=== PATIENT | female | born 1985 | race Two or more races ===

== ENCOUNTER 2022-09-21 13:56 | Outpatient (REF) | payer OTHER, SELFPAY ==
[2022-09-21 14:22] LABS: MANUAL DIFF FLAG NO
[2022-09-21 15:44] LABS: Basophils Absolute Auto 0.2 X10*3/uL (0.0-0.2); Basophils Percent Auto 1.4 % (0-2); Eosinophils Absolute Auto 0.4 X10*3/uL (0.0-0.4); Eosinophils Percent Auto 3.8 % (0-4); Hematocrit 36.3 % (37.0-47.0); Hemoglobin 11.3 g/dl (12.0-16.0); Imm Gran Abs Auto 0.04 X10*3/uL (0.00-0.03); Imm Gran Pct Auto 0.4 % (0.0-0.4); Lymphocytes Absolute Auto 1.9 X10*3/uL (1.2-4.9); Lymphocytes Percent Auto 18.2 % (20-40); Mean Corpuscular HGB Conc 31.1 g/dl (31.0-35.0); Mean Corpuscular Volume 83.4 fL (80.0-98.0); Monocytes Absolute Auto 0.7 X10*3/uL (0.1-1.2); Monocytes Percent Auto 6.2 % (2-11); Neutrophils Absolute Auto 7.4 x10*3/uL (2.0-8.3); Platelet Count 408 X10*3/uL (160-400); Red Blood Count 4.35 X10*6/uL (4.20-5.50); Red Cell Distribution Width 14.8 % (11.0-16.0); White Blood Count 10.6 X10*3/uL (4.8-10.8)
[2022-09-21 16:42] LABS: Alanine Aminotransferase 15 U/L (0-31); Albumin Level 4.1 g/dL (3.5-5.0); Alkaline Phosphatase 65 U/L (39-117); Anion Gap 14 (12-20); Aspartate Amino Transferase 16 U/L (5-31); Bilirubin Total 0.3 mg/dL (0.0-1.0); Blood Urea Nitrogen 14 mg/dL (9-16); Calcium 9.6 mg/dL (8.4-10.2); Carbon Dioxide 26 mmol/L (22-29); Chloride 106 mmol/L (96-108); Estimated Glomerular Filt Rate > 60; Ethanol < 10 mg/dL; Ferritin 13 ng/mL (10-122); Free T4 (Free Thyroxine) 0.92 ng/dL (0.71-1.85); Gamma Glutamyl Transpeptidase 23 U/L (7-33); Glucose Random 86 mg/dL (60-115); HCG Quantitative < 2 mIU/mL; Potassium 4.5 mmol/L (3.3-5.1); Sodium 141 mmol/L (135-145); Thyroid Stimulating Hormone 0.93 uIU/mL (0.32-4.0); Total Protein 7.2 g/dL (6.5-8.0)
[2022-09-21 16:51] LABS: Folate 8.9 ng/mL (> or = 4.0); Vitamin B12 698 pg/mL (200-900)
== END 2022-09-21 13:57 | disposition home or self-care (01) ==
LOC: HO.LAB 13:56
PROVIDERS: Visit Provider Nurse Practitioner Psychiatric/Mental Health
DX: F10.20 Alcohol dependence, uncomplicated (principal)
CPT/HCPCS: 36415; 80053; 82077; 82607; 82728; 82746; 82977; 84439; 84443; 84702; 85025

== ENCOUNTER 2022-10-14 11:45 | Outpatient (RCR) | payer OTHER, SELFPAY ==
[2022-09-15 10:30] VITALS: BP 124/82; PULSE 80; TEMP 36.2
[2022-09-15 15:06] LABS: Amphetamine Screen Urine Not Detected (Not Detect); Barbiturates, Urine Not Detected (Not Detect); Benzodiazepines Screen Urine Not Detected (Not Detect); Cannabinoid Screen Urine Not Detected (Not Detect); Cocaine Screen Urine Not Detected (Not Detect); Fentanyl, urine Not Detected (Not Detect); Opiate Screen Urine Not Detected (Not Detect); Phencyclidine Screen Urine Not Detected (Not Detect)
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
--- NOTE | 2022-09-16 14:10 | HO.PHPIOP ---
Case opened in treatment team
--- NOTE | 2022-09-20 15:22 | HO.PHPPROGNO ---
Subjective Subjective Date of Service: 09/20/22 Reason For Visit: ADHD Medical Problems Affecting Mental Status: No Interim History: Reports taking Adderall, with positive affect. Reports since stopping alcohol 1 month ago has had increased appetite, poor sleep. Would like to be tested weekly for alcohol. Interested in either Campral or naltrexone. Medication Compliance: Yes Side effects from medications: No Attending Groups: Yes Review of Systems Acute medical concerns: No Medical Review of Systems: unchanged Review of Systems Review of Systems Yes all other systems are reviewed and are negative Constitutional: Reports no additional constitutional complaints Mental Status Exam Mental Status Exam Narrative: NAD Patient Appearance: Well Grooomed Patient Orientation: Person, Place, Time and Situation Level of Consciousness: Appropriate Patient Behavior: Appropriate, Talkative, Cooperative, Anxious and Good Eye Contact Mood Description: Appropriate Affect Description: Anxious Patient Cognition Impaired: No Ability to Follow Directions: Excellent Speech Pattern: Clear, Coherent and Excessive Memory Description: Intact Hallucinations: None Delusions: Not Present Thought Process: Intact and Goal Oriented Thought Content: positive for Circumstantial Depressive Symptoms: Increased Anxiety, Increased Irritability, Difficulty Sleeping, Changes in Appetite (increased), Loss of Int. in Activity and Loss of Energy Judgement: Fair Assessment & Plan Assessment & Plan (1) Alcohol dependence, uncomplicated: Status: Acute Code(s): F10.20 - Alcohol dependence, uncomplicated Assessment and Plan: Reports taking Adderall, with positive affect for ADHD. No SI/HI, no safety concerns. Reports since stopping alcohol 1 month ago has had increased appetite, poor sleep. Would like to be tested weekly for alcohol. It was explained that our screenings here are for medical purposes, and that we do not screen for alcohol. Interested in either Campral or naltrexone. We reviewed medications in detail. Patient had lab work that was ordered but has not yet completed. She has decided that she will complete labs 1st, and then decide which medication she would like to go forward with. (2) Generalized anxiety disorder: Status: Acute Code(s): F41.1 - Generalized anxiety disorder (3) Attention-deficit hyperactivity disorder, combined type: Status: Acute Code(s): F90.2 - Attention-deficit hyperactivity disorder, combined type Plan 1. Continue with current [facility] plan of care. 2. Patient to obtain lab work. 3. Follow-up as per protocol. Patient educated on: diagnosis, medication risk/benefits, substance abuse and therapeutic strategies Informed Consent: understands Reason for contiued partial hosp. stay Substantial Risk for: inability to function and rapid decompensation Certification I certify that partial hospital treatment is medically necessary due to the symptoms and problems resulting from the patient's mental illness and the failure to treat the patient at the partial hospital level of care would likely result in the patient requiring inpatient psychiatric care which could not be prevented at a less intensive level of care. I spent minutes with the patient and/or on the patient floor today, greater than?50% of which was spent counseling/coordinating care. Discharge Plan Discharge Attending provider: Josemanuel Valverde Medications: No Action dextroamphetamine-amphetamine 30 mg tablet 1 tab PO BID dextroamphetamine-amphetamine 20 mg tablet 20 mg PO DAILY
--- NOTE | 2022-09-24 11:42 | PC.NURSE ---
Assisted patient in making the following f/u appointments that patient has been putting off for years. [facility]. [address], [place]. Office # [phone]. Appointment with Gomez Vazquez Saturday, October 01, 2022 at 8:30 am. [facility]. [address] [place] [address]. Office Number [phone]. Appointment on Saturday, October 15, 2022 at 2:30 Pm.
--- NOTE | 2022-09-24 11:44 | PC.NURSE ---
Patient given a copy of her lab results.
--- NOTE | 2022-09-24 13:49 | PC.NURSE ---
Patient given information about emergency shelters in the area.
--- NOTE | 2022-09-24 13:57 | PC.NURSE ---
Patient let staff know that she has secured housing for the weekend by borrowing money from her brother. She has been offered a list of emergency shelters. Patient will continue to stay in a hotel through the weekend.
--- NOTE | 2022-09-28 13:28 | P.PNPSP_ITS ---
Subjective Subjective Date of Service: 09/28/22 Reason For Visit: ADHD Medical Problems Affecting Mental Status: No Interim History: Describes mood as ?good ?. Less anxious. Finding groups helpful. Continues to remain abstinent from alcohol. Has questions regarding naltrexone, which was started recently. Medication Compliance: Yes Side effects from medications: No Attending Groups: Yes Review of Systems Acute medical concerns: No Medical Review of Systems: unchanged Review of Systems Review of Systems Yes all other systems are reviewed and are negative Constitutional: Reports no additional constitutional complaints Mental Status Exam Mental Status Exam Narrative: NAD Patient Appearance: Well Grooomed Patient Orientation: Person, Place, Time and Situation Level of Consciousness: Appropriate Patient Behavior: Appropriate, Cooperative and Good Eye Contact Mood Description: Appropriate Affect Description: Appropriate Patient Cognition Impaired: No Ability to Follow Directions: Excellent Speech Pattern: Clear and Coherent Memory Description: Intact Hallucinations: None Delusions: Not Present Thought Process: Intact and Goal Oriented Thought Content: positive for Intact Judgement: Fair Assessment & Plan Assessment & Plan (1) Alcohol dependence, uncomplicated: Status: Acute Code(s): F10.20 - Alcohol dependence, uncomplicated Assessment and Plan: Describes mood as ?good ?. Less anxious. Finding groups helpful. Continues to remain abstinent from alcohol. Has questions regarding naltrexone, which was started recently. States that she has noticed since starting it several days ago that her reactions are ?monotone ?. We reviewed any possible medication interactions with her other medication, which through prescription medication interaction shellfish checker, shows no potential interactions. Reviewed naltrexone side effects both common and more serious. Patient not sure at this time whether her newfound sobriety or the actual medication is causing her to have this feeling monotone, less bright affect. Discussed in depth, patient will remain on the medication for the time being, and has been instructed to stop if begins to feel depressed while taking it. No SI, no safety concerns. (2) Generalized anxiety disorder: Status: Acute Code(s): F41.1 - Generalized anxiety disorder (3) Attention-deficit hyperactivity disorder, combined type: Status: Acute Code(s): F90.2 - Attention-deficit hyperactivity disorder, combined type Plan 1. Continue with current [facility] plan of care. 2. Continue with medications as currently prescribed. 3. Follow-up as per protocol. Certification I certify that partial hospital treatment is medically necessary due to the symptoms and problems resulting from the patient's mental illness and the failure to treat the patient at the partial hospital level of care would likely result in the patient requiring inpatient psychiatric care which could not be prevented at a less intensive level of care. I spent minutes with the patient and/or on the patient floor today, greater than?50% of which was spent counseling/coordinating care. Discharge Plan Discharge Attending provider: Josemanuel Valverde Additional Instructions: [facility] New patient appointment with Edwina Ivory on October 21, 2022 at 9:00am. Office number [phone]. [facility] [place]. [address] [place] [address]. Office # [phone]. Appointment with Gomez Vazquez Saturday, October 01, 2022 at 8:30 am. [facility]. [address] [place] [address]. Office Number [phone]. Appointment on Saturday, October 15, 2022 at 2:30 Pm. Medications: New nicotine (polacrilex) [Nicorette] 2 mg gum 2 mg buccal Q2H PRN (Reason: nicotine cravings) Qty: 20 0RF naltrexone 50 mg tablet 50 mg PO DAILY Qty: 14 0RF No Action dextroamphetamine-amphetamine 30 mg tablet 1 tab PO BID dextroamphetamine-amphetamine 20 mg tablet 20 mg PO DAILY Stand Alone Forms: Patient Portal Discharge page
--- NOTE | 2022-10-07 09:34 | PC.NURSE ---
Patient did not show up to the program this morning. I called patient and voice message on her phone stated the person your calling is not accepting phone calls at this time and is sorry for the inconvenience. Unable to leave a message.
--- NOTE | 2022-10-07 11:16 | PC.NURSE ---
I called Aki again and her voice message on her phone continued to state the person your calling is not accepting phone calls at this time and is sorry for the inconvenience. Unable to leave a message. Aki started a new job and works until 4 am in the morning. [facility] staff are aware.
--- NOTE | 2022-10-07 15:23 | PC.NURSE ---
Called patient at [phone]. Phone message continues to state that patient is not accepting phone calls at this time and am unable to leave a message. [facility] staff are aware.
--- NOTE | 2022-10-08 12:20 | PC.NURSE ---
I spoke to patient this morning and she stated her phone was not working yesterday however it is working today as she payed the bill. Stated she has an appointment today and would not be able to attend group today. Aruna to reach out to patient today regarding discharge. Patient is aware.
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
--- NOTE | 2022-10-08 14:04 | HO.PHPIOP ---
I spoke with the client DCF worker about clients progress in the program and the plan to make a referral to the [facility]. She agrees with the plan
--- NOTE | 2022-10-08 14:56 | HO.PHPIOP ---
i left a message with the client service administrator at the [facility] and requested a call back re referral for a client
--- NOTE | 2022-10-12 12:30 | P.PNPSP_ITS ---
Subjective Subjective Date of Service: 10/12/22 Reason For Visit: anxiety Medical Problems Affecting Mental Status: No Interim History: Reports having increased anxiety, feeling fatigued, overwhelmed at times. Difficulty with concentration. Some depression. No SI, no safety concerns. Continues to remain abstinent from alcohol, finding naltrexone helpful. Interested in medication to help with mood / anxiety. Medication Compliance: Yes Side effects from medications: No Attending Groups: Yes Review of Systems Acute medical concerns: No Medical Review of Systems: unchanged Review of Systems Review of Systems Yes all other systems are reviewed and are negative Constitutional: Reports no additional constitutional complaints Mental Status Exam Mental Status Exam Narrative: NAD Patient Appearance: Well Grooomed Patient Orientation: Person, Place, Time and Situation Level of Consciousness: Appropriate Patient Behavior: Appropriate, Cooperative and Good Eye Contact Mood Description: Depressed and Anxious Affect Description: Anxious Patient Cognition Impaired: No Ability to Follow Directions: Excellent Speech Pattern: Clear and Appropriate Memory Description: Intact Hallucinations: None Delusions: Not Present Thought Process: Intact Thought Content: positive for Intact Depressive Symptoms: Increased Anxiety, Diff. Making Decisions, Increased Fatigue and Difficulty Concentrating Judgement: Fair Assessment & Plan Assessment & Plan (1) Generalized anxiety disorder: Status: Acute Code(s): F41.1 - Generalized anxiety disorder Assessment and Plan: Reports having increased anxiety, feeling fatigued, overwhelmed at times. Difficulty with concentration. Does not feel this is related to her ADHD, but more because she is experiencing more anxiety. Has begun working night cleaner, having difficulty adjusting to schedule. Also has multiple stressors at this time, which she is attempting to manage. Finding groups helpful. Some depression. If you would symptoms of depression. Does identify having increased anxiety, poor concentration, fatigue. Denies issues with appetite, anhedonia, guilt, feeling bad about herself. No SI, no safety concerns. Continues to remain abstinent from alcohol, finding naltrexone helpful. Interested in medication to help with mood / anxiety. We discussed adding an SSRI such as sertraline or Celexa. Also discussed trialing p.r.n. clonidine. A full discussion was had, including risks and benefits, alternatives to use. Patient is agreeable to trial clonidine at this time. (2) Alcohol dependence, uncomplicated: Status: Acute Code(s): F10.20 - Alcohol dependence, uncomplicated Assessment and Plan: Patient fully engaged in 12 step program. Continues to remain abstinent. Finding naltrexone helpful. Is considering Vivitrol in future. (3) Attention-deficit hyperactivity disorder, combined type: Status: Acute Code(s): F90.2 - Attention-deficit hyperactivity disorder, combined type Plan 1. Continue with current [facility] plan of care. 2. Start clonidine 0.1 mg b.i.d. p.r.n./anxiety. 3. Continue naltrexone 50 mg daily. 4. Patient provided information regarding [facility], as she is interested in continuing naltrexone upon discharge. 5. Follow-up as per protocol. Patient educated on: diagnosis, medication risk/benefits, substance abuse and therapeutic strategies Informed Consent: understands Reason for contiued partial hosp. stay Substantial Risk for: inability to function and rapid decompensation Certification I certify that partial hospital treatment is medically necessary due to the symptoms and problems resulting from the patient's mental illness and the failure to treat the patient at the partial hospital level of care would likely result in the patient requiring inpatient psychiatric care which could not be prevented at a less intensive level of care. I spent minutes with the patient and/or on the patient floor today, greater than?50% of which was spent counseling/coordinating care. Discharge Plan Discharge Attending provider: Josemanuel Valverde Additional Instructions: [facility] office. [address] [facility]. New patient appointment with Edwina Ivory on October 21, 2022 at 9:00am. Office number [phone]. [facility] [place]. [address] [place] [address]. Office # [phone]. Appointment with Gomez Vazquez Saturday, October 01, 2022 at 8:30 am. [facility]. [address] [place] [address]. Office Number [phone]. Appointment on Saturday, October 15, 2022 at 2:30 Pm. Medications: New nicotine (polacrilex) [Nicorette] 2 mg gum 2 mg buccal Q2H PRN (Reason: nicotine cravings) Qty: 20 0RF naltrexone 50 mg tablet 50 mg PO DAILY Qty: 30 0RF clonidine HCl 0.1 mg tablet 0.1 mg PO BID PRN (Reason: anxiety) Qty: 30 0RF No Action dextroamphetamine-amphetamine 30 mg tablet 1 tab PO BID dextroamphetamine-amphetamine 20 mg tablet 20 mg PO DAILY Stand Alone Forms: Patient Portal Discharge page Patient Education: Clonidine (By mouth), Anxiety (GEN), Alcohol Use Disorder (DC)
--- NOTE | 2022-10-15 10:27 | PC.NURSE ---
Patient interested in the medication assisted treatment for ETOH with Vivitrol. She has an appointment with the [facility] on October 18, 2022. See d/c paperwork.
--- NOTE | 2022-10-15 13:41 | HO.PHPIOP ---
I emiled the client DCF worker, Jessica Louis, a detailed summary of client progress in treatment.
== END 2022-10-14 23:59 | disposition home or self-care (01) ==
LOC: HO.PHPA 11:45
PROVIDERS: Nurse Practitioner Psychiatric/Mental Health; Visit Provider Psychiatry & Neurology Psychiatry
DX: F90.2 Attention-deficit hyperactivity disorder, combined type (principal); F41.1 Generalized anxiety disorder; F10.20 Alcohol dependence, uncomplicated; Z79.891 Long term (current) use of opiate analgesic
CPT/HCPCS: 80307; 90791; 90853

== ENCOUNTER → 2022-10-18 13:52 | Outpatient (BNVA) | payer OTHER, SELFPAY | PROVIDERS: Visit Provider Nurse Practitioner Psychiatric/Mental Health | DX: F10.20 Alcohol dependence, uncomplicated (principal) | CPT/HCPCS: 80305; 99212 ==

== ENCOUNTER → 2022-11-02 13:41 | Outpatient (BNVA) | payer OTHER, SELFPAY | PROVIDERS: Visit Provider Nurse Practitioner Psychiatric/Mental Health | DX: F10.20 Alcohol dependence, uncomplicated (principal); F41.1 Generalized anxiety disorder | CPT/HCPCS: 80305; 81025; 96372; 99212 ==

== ENCOUNTER → 2022-12-06 14:37 | Outpatient (BNVA) | payer OTHER, SELFPAY | PROVIDERS: Visit Provider Nurse Practitioner Psychiatric/Mental Health | DX: Z51.81 Encounter for therapeutic drug level monitoring (principal); F10.20 Alcohol dependence, uncomplicated; F41.1 Generalized anxiety disorder | CPT/HCPCS: 80305; 81025; 96372; 99212 ==

== ENCOUNTER → 2023-01-07 14:16 | Outpatient (BNVA) | payer OTHER, SELFPAY | PROVIDERS: Visit Provider Nurse Practitioner Psychiatric/Mental Health | DX: F10.20 Alcohol dependence, uncomplicated (principal); F41.1 Generalized anxiety disorder | CPT/HCPCS: 81025; 96372; 99212 ==

== ENCOUNTER → 2023-02-18 15:00 | Outpatient (BNVA) | payer OTHER, SELFPAY | PROVIDERS: Visit Provider Nurse Practitioner Psychiatric/Mental Health | DX: F10.20 Alcohol dependence, uncomplicated (principal); Z32.02 Encounter for pregnancy test, result negative; Z79.899 Other long term (current) drug therapy | CPT/HCPCS: 80305; 81025; 96372; 99212 ==

== ENCOUNTER → 2023-04-08 14:34 | Outpatient (BNVA) | payer OTHER, SELFPAY | PROVIDERS: Visit Provider Nurse Practitioner Psychiatric/Mental Health | DX: Z51.81 Encounter for therapeutic drug level monitoring (principal); F10.20 Alcohol dependence, uncomplicated; Z79.899 Other long term (current) drug therapy | CPT/HCPCS: 80305; 96372; 99212 ==

== ENCOUNTER 2023-06-06 14:14 | Outpatient (AMB) | payer OTHER, SELFPAY ==
--- NOTE | 2023-06-06 14:20 | MHC.OFFVIS ---
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 Allergies Penicillins [PCN] Allergy (Verified 06/06/23 14:20) Rash Do you need a note to return to daycare/school/sports/work: No HPI krystin inj HPI Details Pt presents for AUD treatment follow up and vivitrol injection Denies any side effects related to medication Engaged in outpt treatment with Adderall 60mg in AM and 20mg at 2pm Strong recovery supports in the community --via AA and DCF parenting support group Recently moved to [place] and is happy to be closer to everything [facility] Medical History Bilateral ureteral reflux Surgical History History of delivery Hx of cholecystectomy Social History Household Members: Other Household Members Other:: 18 year old daughter Patient Tobacco Use Status: Former Tobacco user Review of Systems Const All systems reviewed & are unremarkable except as noted in HPI and below Reports no additional complaints Physical Exam Vital Signs: Last Vital Signs Pulse 86 06/06/23 14:30 BP 122/70 06/06/23 14:30 Pulse Ox 97 06/06/23 14:30 Oxygen Delivery Method Room Air 06/06/23 14:30 Const General: cooperative, healthy appearing, comfortable, no acute distress and alert Nutritional Appearance: well nourished Orientation/consciousness: patient oriented x3 Limitations: no limitations Neuro General: patient oriented x3 Psych Appearance: grossly normal Mental Status: mental status grossly normal Speech and movement: Normal speech and movement present Affect: normal affect Attitude: cooperative Thought process: Normal thought process present Thought content: Normal thought content present Insight: Good insight present (Psych) Judgement: Good judgement present (Psych) Office Meds Vivitrol ER Performing Provider: Suzan Mas CNP Administered by: Leatha Stark on 06/06/23 14:55 Dose Route Admin Location Lot Number Expiration Date NDC Septic Cleaner 380 mg IM LG 3-0T 09/06/25 62519-277-41 [facility] Comments: Pt tolerated injection well. Educated on signs/symptoms of infection, encouraged to call the [facility] with questions or concerns. Pt reports after last injection using [place] which resulted in inflamed/red area, pt reports this subsided with time. No redness noted around prior injection site. Results AMB 14 Panel Urine Drug Screen Urine Marijuana (THC) Negative Last Edit by Kim Boggs CMA on 06/06/23 14:31 Urine Cocaine Negative Last Edit by Kim Boggs CMA on 06/06/23 14:31 Urine Morphine Negative Last Edit by Kim Boggs CMA on 06/06/23 14:31 Urine Methamphetamine Negative Last Edit by Kim Boggs CMA on 06/06/23 14:31 Urine Amphetamine Negative Last Edit by Kim Boggs CMA on 06/06/23 14:31 Urine Benzodiazepine Negative Last Edit by Kim Boggs CMA on 06/06/23 14:31 Urine Barbiturates Negative Last Edit by Kim Boggs CMA on 06/06/23 14:31 Urine Methadone Negative Last Edit by Kim Boggs CMA on 06/06/23 14:31 Urine Buprenorphine Negative Last Edit by Kim Boggs CMA on 06/06/23 14:31 Urine Tricyclic Antidepressant Negative Last Edit by Kim Boggs CMA on 06/06/23 14:31 Urine MDMA Negative Last Edit by Kim Boggs CMA on 06/06/23 14:31 Urine Oxycodone Negative Last Edit by Kim Boggs CMA on 06/06/23 14:31 Urine Phencyclidine Negative Last Edit by Kim Boggs CMA on 06/06/23 14:31 Urine Propoxyphene Negative Last Edit by Kim Boggs CMA on 06/06/23 14:31 AMB Test Urine AMB Test Urine Negative Last Edit by Kim Boggs CMA on 06/06/23 14:32 Results Reviewed Results Reviewed: Laboratory Last Values [facility] Negative 06/06/23 14:21 POC Urine Buprenorphine Negative 06/06/23 14:21 POC Urine Morphine Negative 06/06/23 14:21 POC Urine Oxycodone Negative 06/06/23 14:21 POC Urine Methadone Negative 06/06/23 14:21 POC Urine Propoxyphene Negative 06/06/23 14:21 POC Urine Barbiturates Negative 06/06/23 14:21 POC U Tricyclic Antidpr Negative 06/06/23 14:21 POC Urine PCP Negative 06/06/23 14:21 POC Ur Amphetamines Negative 06/06/23 14:21 POC Ur Methamphetamine Negative 06/06/23 14:21 POC Urine MDMA Negative 06/06/23 14:21 POC Ur Benzodiazepine Negative 06/06/23 14:21 POC Urine Cocaine Negative 06/06/23 14:21 POC Ur Marijuana (THC) Negative 06/06/23 14:21 Assessment & Plan Assessment & Plan (1) Alcohol dependence, uncomplicated: Code(s): F10.20 - Alcohol dependence, uncomplicated Plan: tolerated injection follow up 4 weeks Orders: Orders AMB Naltrexone Injection Patient Supplied Today F10.20 - Alcohol dependence, uncomplicated AMB 14 Panel Urine Drug Screen Today Z51.81 - Encounter for therapeutic drug level monitoring AMB HCG Urine Test Today Z32.01 - Encounter for test, result positive, Z32.02 - Encounter for test, result negative Medications: Discontinued bupropion HCl (Wellbutrin XL) Discontinued Reason: Patient no longer taking 150 mg PO QAM 14 tabs 0RF Coding Level of Care Code Est Pt Level 3 (51535) Diagnoses Alcohol dependence, uncomplicated F10.20
[2023-06-06 14:30] VITALS: BP 122/70; PULSE 86; O2SAT 97
== END 2023-06-06 14:56 | disposition home or self-care (01) ==
LOC: HO.HCC 14:15
PROVIDERS: Visit Provider Nurse Practitioner Psychiatric/Mental Health
DX: Z32.02 Encounter for pregnancy test, result negative (principal); Z32.01 Encounter for pregnancy test, result positive; F10.20 Alcohol dependence, uncomplicated; Z51.81 Encounter for therapeutic drug level monitoring
CPT/HCPCS: 99213; J2315

== ENCOUNTER → 2023-06-06 14:14 | Outpatient (BNVA) | payer OTHER, SELFPAY | PROVIDERS: Visit Provider Nurse Practitioner Psychiatric/Mental Health | DX: F10.20 Alcohol dependence, uncomplicated (principal); Z51.81 Encounter for therapeutic drug level monitoring; Z79.899 Other long term (current) drug therapy; Z32.02 Encounter for pregnancy test, result negative | CPT/HCPCS: 80305; 81025; 96372; 99212 ==

== ENCOUNTER 2023-08-03 14:22 | Outpatient (AMB) | payer OTHER, SELFPAY ==
--- NOTE | 2023-08-03 14:23 | AM.OFFVISNUR ---
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
[2023-08-03 14:44] VITALS: BP 110/78; PULSE 95; O2SAT 97
--- NOTE | 2023-08-03 14:44 | AM.OFFVISNUR ---
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
== END 2023-08-03 15:03 | disposition home or self-care (01) ==
LOC: HO.HCC 14:22
PROVIDERS: Visit Provider Nurse Practitioner Family
DX: Z32.02 Encounter for pregnancy test, result negative (principal); Z32.01 Encounter for pregnancy test, result positive; F10.20 Alcohol dependence, uncomplicated
CPT/HCPCS: J2315

== ENCOUNTER → 2023-08-03 14:22 | Outpatient (BNVA) | payer OTHER, SELFPAY | PROVIDERS: Visit Provider Nurse Practitioner Family | DX: F10.21 Alcohol dependence, in remission (principal); Z79.899 Other long term (current) drug therapy; Z32.02 Encounter for pregnancy test, result negative | CPT/HCPCS: 81025; 96372 ==